=== PATIENT | male | born 1985 | race Caucasian/White ===

== ENCOUNTER 2021-04-08 13:29 | Outpatient (CLI) | payer OTHER, SELFPAY ==
[2021-04-08 14:06] LABS: SARS-CoV-2 Ag Positive (Negative)
== END 2021-04-08 13:30 | disposition home or self-care (01) ==
LOC: CHSLAB 13:32
PROVIDERS: PCP Family Medicine; Visit Provider Family Medicine
DX: U07.1 COVID-19 (principal)
CPT/HCPCS: 87426; C9803

== ENCOUNTER 2021-11-05 09:21 | Outpatient (CLI) | payer OTHER, SELFPAY ==
--- NOTE | ~2021-11-05 | XR_ITS ---
XR ankle RT min 3V 11/05/2021 09:41 INDICATION: Right ankle pain and swelling PROCEDURE: 4 views right ankle COMPARISON: 02/09/2014 FINDINGS: Fracture, dislocation or subluxation is not identified. Ankle mortise intact. There are arnulfo gical changes of the distal tibia and fibula. Small degenerative calcaneal enthesophytes. The soft ti ssues appear within normal limits. No foreign bodies are identified. There are corticated ossific de nsities distal to the fibula which may represent accessory ossicles or sequela of remote trauma. IMPRESSION: 1: NO ACUTE BONE OR JOINT ABNORMALITY IDENTIFIED. Reviewed, dictated and finalized at location A.
== END 2021-11-05 09:22 | disposition home or self-care (01) ==
LOC: CHSIMG 09:24
PROVIDERS: PCP Family Medicine; Visit Provider Family Medicine
DX: M25.571 Pain in right ankle and joints of right foot (principal)
CPT/HCPCS: 73610

== ENCOUNTER 2023-01-07 07:09 | Outpatient (CLI) | payer BC, SELFPAY ==
--- NOTE | ~2023-01-07 | US_ITS ---
US right upper quadrant INDICATION: Right upper quadrant pain PROCEDURE: Realtime right upper abdominal ultrasound. COMPARISON: Ultrasound dated 01/19/2019 FINDINGS: The pancreas is normal without focal mass or pancreatic ductal dilation. Over echotexture is diffusely increased, consistent with fatty infiltration. There is normal directional flow in the portal vein. The gallbladder is normal without stones, gallbladder wall thickening or pericholecystic fluid. Comm on bile duct measures 3 mm. No sonographic Vick's sign. IMPRESSION: 1: Fatty infiltration of the liver. Reviewed, dictated and finalized at location B.
== END 2023-01-07 07:10 | disposition home or self-care (01) ==
LOC: CHSIMG 07:12
PROVIDERS: PCP Family Medicine; Visit Provider Family Medicine
DX: R10.13 Epigastric pain (principal); K76.0 Fatty (change of) liver, not elsewhere classified
CPT/HCPCS: 76705

== ENCOUNTER 2023-07-31 07:40 | Outpatient (CLI) | payer BC, SELFPAY ==
--- NOTE | ~2023-07-31 | NM_ITS ---
EXAMINATION: NM hepatobiliary w pharm DATE: 07/31/2023 10:44 CDT INDICATION: Epigastric pain COMPARISON: None. TECHNIQUE: 6.3 mCi Tc-99m mebrofenin (Choletec) was administered intravenously. Scintigraphic images of the abdomen were obtained for one hour. At the 1 hour time point, 2.9 mcg sincalide (Kinevac) was administered by slow intravenous infusion, and imaging was continued for 30 minutes. Gallbladder eje ction fraction was calculated by the technologist.] FINDINGS: There is normal clearance of radiotracer from the blood pool. There is homogeneous tracer u ptake by the liver. Activity progresses to the gallbladder and bowel. Gallbladder ejection fraction is 31%% (normal 10-90%, but most patient with gallbladder dysfunction have GBEF < 35%).] IMPRESSION: 1. Mildly decreased gallbladder ejection fraction measuring 31%. Reviewed, dictated and finalized at location B.
== END 2023-07-31 07:41 | disposition home or self-care (01) ==
LOC: CHSIMG 07:41
PROVIDERS: PCP Family Medicine; Visit Provider Family Medicine
DX: R10.13 Epigastric pain (principal)
CPT/HCPCS: 78227; A9537; J2805

== ENCOUNTER 2023-09-11 00:51 | Day surgery (SDC) | payer BC, SELFPAY ==
[2023-09-08 14:20] VITALS: BMI 39.4
[2023-09-11 12:47] VITALS: BP 146/100; PULSE 73; RESP 18; TEMP 36.4; O2SAT 98
[2023-09-11] MEDS: LACTATED RINGERS 1,000 ML 150 ML IV CONT (13:01)
--- NOTE | 2023-09-11 13:32 | P.PNAN_ITS ---
Anes - Initial Pre Proc Eval Procedure: Operation Date: 09/11/23 15:00 Proposed Procedures p Esophagogastroduodenoscopy - Gatito Matute MD Date/Time: 09/11/23 13:32 Surgeon: Gatito Matute MD Pre Op Diagnosis: RUQ pain, GERD Patient Data Age: 38 Gender: M Height: 1.83 m Weight: 130 kg Last Vital Signs Temp 97.5 F L 09/11/23 12:47 Pulse 73 09/11/23 12:47 Resp 18 09/11/23 12:47 BP 146/100 H 09/11/23 12:47 Pulse Ox 98 09/11/23 12:47 O2 Del Method Room Air 09/11/23 12:47 Allergies Allergy/AdvReac Type Severity Reaction Status Date / Time No Known Allergies Allergy Verified 09/11/23 12:46 Home Medications Medication Instructions Recorded Confirmed Type No Home Medications 09/08/23 09/08/23 History Patient hx anesthesia problems: none Family hx anesthesia problems: none Results Review: All pre-operative results and documents have been reviewed as part of the pre-operative evaluation. REPLACED BY [facility] Surgical History Surgical History History of appendectomy Family History Family History Father Coronary artery disease Dementia Mother H/O valvular heart disease Social History Social History Smoking status: Current every day smoker Tobacco type: cigarettes Alcohol intake: never Substance use: never Substance use type: does not use Living arrangements: with family Spiritual care concerns: No Anes - Eval Final PreProcedure Day of Procedure 09/11/23 13:32 Patient weight: obese Heart: regular rate and rhythm Lungs: clear to auscultation Airway: Mallampati scale class III Neurological: alert and oriented Last oral intake: >/= 8 hours ASA classification: III Emergent: no Anesthetic plan: proceed Anesthesia type and monitoring: general GIVS and standard monitoring Results Review: All pre-operative results and documents have been reviewed as part of the pre- operative evaluation. Informed Consent: The patient's anesthetic plan and its attendant risks and benefits were discussed with the patient/family/POA. Questions were solicited and answers provided to the satisfaction of the patient/family/POA.
--- NOTE | 2023-09-11 13:47 | WPDHPUPDATE1 ---
History and Physical Update Update Date/Time: 09/11/23 13:47 History and Physical has been reviewed, including an updated exam of the patient. There are NO changes in the patient's condition. Risks, benefits, and alternatives have been discussed and questions answered. Patient agrees to proceed with procedure.
[2023-09-11 13:58] VITALS: BP 122/81; PULSE 91; RESP 20; O2SAT 98
[2023-09-11 14:08] VITALS: BP 139/87; PULSE 79; RESP 25; O2SAT 94
[2023-09-11 14:18] VITALS: BP 136/79; PULSE 80; RESP 22; O2SAT 94
== END 2023-09-11 14:22 | disposition home or self-care (01) ==
PROVIDERS: PCP Family Medicine; Referring Provider Nurse Practitioner Family; Visit Provider Internal Medicine Gastroenterology
PROC: 0DJ08ZZ Inspection of Upper Intestinal Tract, Via Natural or Artificial Opening Endoscopic (ICD-10-PCS; CPT 43235; principal; 2023-09-11 15:00)
DX: K29.80 Duodenitis without bleeding (principal); R10.13 Epigastric pain; R10.11 Right upper quadrant pain; K21.9 Gastro-esophageal reflux disease without esophagitis; R94.8 Abnormal results of function studies of other organs and systems; R93.2 Abnormal findings on diagnostic imaging of liver and biliary tract; B96.81 Helicobacter pylori [H. pylori] as the cause of diseases classified elsewhere; F17.210 Nicotine dependence, cigarettes, uncomplicated; K76.0 Fatty (change of) liver, not elsewhere classified; Z80.0 Family history of malignant neoplasm of digestive organs
CPT/HCPCS: 43239; 88305; 88342; J7120

== ENCOUNTER 2023-11-17 07:33 | Outpatient (CLI) | payer BC, SELFPAY ==
[2023-11-17 08:26] LABS: Alanine Aminotransferase 42 U/L (16-63); Albumin Level 3.8 g/dL (3.4-5.0); Alkaline Phosphatase 120 U/L (46-116); Amylase 48 U/L (25-115); Aspartate Amino Transferase 19 U/L (15-37); Bilirubin Direct 0.1 mg/dL (0-0.2); Bilirubin,Total 0.4 mg/dL (0.00-1.00); Lipase 33 U/L (16-77); Total Protein 6.9 g/dL (6.4-8.2)
== END 2023-11-17 07:34 | disposition home or self-care (01) ==
LOC: CHSLAB 07:35
PROVIDERS: PCP Family Medicine; Visit Provider Surgery
DX: Z01.818 Encounter for other preprocedural examination (principal); K82.8 Other specified diseases of gallbladder
CPT/HCPCS: 36415; 80076; 82150; 83690

== ENCOUNTER 2023-11-20 00:23 | Day surgery (SDC) | payer BC, SELFPAY ==
[2023-11-16 09:24] VITALS: BMI 39.3
--- NOTE | 2023-11-16 09:40 | SUR.PREOP ---
Report to the Outpatient Waiting Room, entrance under the green pavilion located off [facility], at time 1100 on date 11/20/23. Planned Procedure Time: 1300. Time changes happen often and if your time is changed the preop area will call you the afternoon before. - You and your visitor will be asked to self-screen and do not enter if you have any COVID symptoms. - A mask is optional within the hospital at this time. Patients may have clear liquids (water, carbonated beverages, clear teas, apple juice) until 3 hours prior to surgery with a maximum of 20 ounces. - No food from midnight until time of surgery - Infants may have breast milk until 4 hours before surgery, infant formula 6 hours prior to surgery. - Children will be allowed to drink immediately following surgery. If applicable, please bring a bottle or sippy cup to assist with drinking. Juice, water, soda, and popsicles are readily available. For infants on formula, please bring formula the day of surgery. Pacifiers are allowed. Take the following medications with a SIP of water the morning of surgery: N/A DO NOT STOP ANY OF YOUR OTHER PRESCRIPTION MEDICATIONS PRIOR TO SURGERY ?EXCEPT THE FOLLOWING Medications to discontinue per physician N/A Date to take last dose N/A Please no make-up, nail [place], hairspray, perfume, deodorant, or body powder the day of surgery. No jewelry (including any body piercings) or valuables the day of surgery, leave them at home. Please take a shower or bath the night before, or the morning of, surgery with an antibacterial soap. Wear comfortable, loose fitting clothing. Children are encouraged to wear pajamas. - Jewelry must be removed prior to entering the operating room. Rings and piercings that are not removed may be cut off. - The hospital will not accept responsibility for valuables. - Please leave all valuables, including medications, at home the day of surgery. If you are going home after surgery, a licensed river driver must drive you home. - NO public transportation without another adult if you receive anesthesia. - We recommend that an adult stay with you for 24 hours following discharge. - We also recommend that you do not drive, make important decision, drink alcoholic beverages, or take any drugs that were not prescribed by your health care provider for at least 24 hours after your discharge time. For Pediatric surgeries, we recommend two adults accompany the child home. Follow any additional instructions given to you from your surgeon. If you or anyone in your household have experienced Covid symptoms in the past week, please notify your surgeon or the nurse liaison at the phone number below for possible testing. Telephone instructions given to RIAN ULRICH and asked if any additional questions and then verbalized understanding. Patient advised to call surgeon office or pre surgery nurse liaison [phone] if any additional questions.
[2023-11-20] VITALS (11 sets, daily range): BP systolic 100–162; BP diastolic 56–98; PULSE 67–91; RESP 12–16; TEMP 36.3–36.4; O2SAT 91–100
--- NOTE | 2023-11-20 11:58 | WPDHPUPDATE1 ---
History and Physical Update Update Date/Time: 11/20/23 11:58 History and Physical has been reviewed, including an updated exam of the patient. There are NO changes in the patient's condition. Risks, benefits, and alternatives have been discussed and questions answered. Patient agrees to proceed with procedure.
[2023-11-20] MEDS: ACETAMINOPHEN 500 MG TABLET 1000 MG PO (12:03)
--- NOTE | 2023-11-20 12:06 | WPDANESEPPF ---
Anes - Initial Pre Proc Eval Procedure: Operation Date: 11/20/23 13:00 Proposed Procedures p Laparoscopic Cholecystectomy, Possible Open - Boom Montes DO Date/Time: 11/20/23 12:06 Surgeon: Boom Montes DO Pre Op Diagnosis: biliary dyskinesia Patient Data Age: 38 Gender: M Height: 1.83 m Weight: 131 kg Last Vital Signs Temp 36.3 C L 11/20/23 11:00 Pulse 78 11/20/23 11:00 Resp 16 11/20/23 11:00 BP 141/95 H 11/20/23 11:00 Pulse Ox 98 11/20/23 11:00 O2 Del Method Room Air 11/20/23 11:00 Allergies Allergy/AdvReac Type Severity Reaction Status Date / Time No Known Allergies Allergy Verified 11/20/23 11:48 Home Medications Medication Instructions Recorded Confirmed Type No Home Medications 11/16/23 11/20/23 History Patient hx anesthesia problems: none Family hx anesthesia problems: none Results Review: All pre-operative results and documents have been reviewed as part of the pre-operative evaluation. [facility] Past Medical History Medical History (Updated 11/20/23 @ 12:11 by Santana Rodarte DO) GERD (gastroesophageal reflux disease) Helicobacter positive gastritis Hepatic steatosis Surgical History Surgical History History of appendectomy Family History Family History Father Coronary artery disease Dementia Mother H/O valvular heart disease Social History Social History (Updated 11/20/23 @ 12:15 by Santana Rodarte DO) Years smoked: 10 Smoking status: Current every day smoker Tobacco type: cigarettes Additional smoking assessment comments: 15 years Alcohol intake: never Substance use: never Substance use type: does not use Living arrangements: with friend(s) Spiritual care concerns: No Anes - Eval Final PreProcedure Day of Procedure 11/20/23 12:06 Patient weight: obese Heart: regular rate and rhythm Lungs: clear to auscultation Airway: Mallampati scale class II and special considerations poor dentition Neurological: alert and oriented Last oral intake: >/= 8 hours ASA classification: III Emergent: no Anesthetic plan: proceed Anesthesia type and monitoring: general ETT and standard monitoring Results Review: All pre-operative results and documents have been reviewed as part of the pre-operative evaluation. Informed Consent: The patient's anesthetic plan and its attendant risks and benefits were discussed with the patient/family/POA. Questions were solicited and answers provided to the satisfaction of the patient/family/POA.
[2023-11-20] MEDS: KETOROLAC 15 MG/ML VIAL (*BKC) IV PUSH (12:16)
[2023-11-20] MEDS: ceFAZolin 3 GM/D5W 100 ML 100 ML IVPB (12:40)
[2023-11-20] MEDS: BUPIVACAINE/EPINEPHRINE 0.5% 10 ML VIAL 30 ML INFILTRATE (12:40)
--- NOTE | 2023-11-20 13:38 | W.PM.PROC2 ---
Procedure Note - Detailed Date of Procedure 11/20/23 Pre-op Diagnosis biliary dyskinesia Post-op Diagnosis Same Procedure Performed Laparoscopic Cholecystectomy Surgeon Boom Montes, DO Anesthesia General and Local (0.5% bupivacaine) Indications This is a 38-year-old man who presented with intermittent epigastric and right upper quadrant pain after eating fried or fatty foods. This is been going on for at least several months. He had a previous ultrasound which only showed fatty infiltration of the liver. He then had a HIDA scan which showed a gallbladder ejection fraction of 31%. Discussions were made with the patient about treatment options. Decision was made to proceed with laparoscopic cholecystectomy, possible open. Findings Laparoscopic cholecystectomy was performed. The patient's gallbladder had a few pericholecystic adhesions. There was a significant amount of pericholecystic adipose tissue as well. The cystic duct appeared normal in size. No other significant abnormalities were noted with the gallbladder itself. The gallbladder was removed and sent to the lab for pathology. Description of Procedure Procedure as well as risks, benefits, and alternatives were discussed with patient. Written consent was obtained and placed in chart prior to procedure. The patient was brought back to surgical suite. Patient was placed in supine position on operating table. Time-out was done to confirm patient and procedure. Patient was then intubated by the anesthesia department. Abdomen was prepped and draped in sterile fashion using chlorhexidine prep. 0.5% bupivacaine with epinephrine was infiltrated at each site of incision. A 5 millimeter incision was made near the umbilicus, and a 5 millimeter Optiview trocar was advanced through the abdominal layers under direct visualization. Once inside the abdominal cavity, carbon dioxide was insufflated to create a pneumoperitoneum. The camera was inserted and the abdomen was inspected. No immediate abnormalities were identified. The patient was placed in reverse Trendelenburg position and rotated slightly to the left. An 11 millimeter incision was made in the subxiphoid region, and an 11 millimeter trocar was inserted under direct visualization. Two 5 millimeter incisions were made in the right upper quadrant, and two 5 millimeter trocars were inserted under direct visualization. The gallbladder was identified and grasped at the fundus and retracted superiorly. It was then grasped at the infundibulum retracted laterally. Careful dissection around the neck of the gallbladder was performed using blunt dissection with a [place] grasper and hook electrocautery. The cystic duct was identified, and a window was created behind it. The cystic artery was also identified and a window was created behind it. The critical view of safety was identified, visualizing the cystic duct running directly into the neck of the gallbladder, and the cystic artery running directly into the wall of the gallbladder. A 5 millimeter clip air conditioning mechanic industrial was then used to place 2 clips proximally and 1 clip distally on both the cystic duct and cystic artery. They were then both transected using endoscopic scissors. Once safely away from the janessa hepatitis, the gallbladder was dissected free from the liver bed using hook electrocautery. Hemostasis was achieved along the way. The gallbladder was removed completely and then removed through the subxiphoid port. The liver bed was then inspected. Hemostasis appeared adequate, and our clips appeared secure. The area was gently irrigated with sterile saline. No other abnormalities were seen. The patient was flattened out in bed, and 1 final inspection was made around the abdominal cavity. The subxiphoid port was removed, and a Mikel Greg cone was used to approximate the fascia with an 0-Vicryl simple interrupted suture. The remaining ports were then removed under direct visualization, the
[2023-11-20] MEDS: LACTATED RINGERS 1,000 ML 30 ML IV CONT ×2 (14:07→14:43)
[2023-11-20] MEDS: ONDANSETRON INJ 4 MG/2 ML VIAL IV PUSH (14:45)
[2023-11-20] MEDS: SCOPOLAMINE 1 MG PATCH 1 PATCH TRANSDERM (15:07)
[2023-11-20] MEDS: diphenhydrAMINE HCl INJ 50 MG/ML VIAL 25 MG IV PUSH (15:08)
== END 2023-11-20 16:47 | disposition home or self-care (01) ==
PROVIDERS: PCP Family Medicine; Visit Provider Surgery
PROC: 0FT44ZZ Resection of Gallbladder, Percutaneous Endoscopic Approach (ICD-10-PCS; CPT 47562; principal; 2023-11-20 13:00)
DX: K82.8 Other specified diseases of gallbladder (principal); K21.9 Gastro-esophageal reflux disease without esophagitis; F17.210 Nicotine dependence, cigarettes, uncomplicated
CPT/HCPCS: 47562; 88304; A9270; J0690; J1100; J1170; J1200; J1885; J2250; J2405; J2704; J3010; J7030; J7120

== ENCOUNTER 2023-12-14 14:19 | Emergency (ER) | payer BC, SELFPAY ==
[2023-12-14 14:19] VITALS: BP 153/95; PULSE 110; RESP 18; TEMP 36.3; O2SAT 96
--- NOTE | 2023-12-14 14:33 | ED.EYEPROB ---
HPI - Eye Problem General Chief complaint: Eye Problems Stated complaint: foreign body left eye Time Seen by Provider: 12/14/23 14:29 History of Present Illness HPI Narrative: Pt was grinding metal earlier and later noticed a FB sensation in his left eye and noticed black spot in his eye. Vision is intact. Related Data Home Medications Medication Instructions Recorded Confirmed No Home Medications 12/04/23 12/14/23 Allergies Allergy/AdvReac Type Severity Reaction Status Date / Time No Known Allergies Allergy Verified 12/14/23 14:28 Review of Systems Review of Systems: All systems reviewed & are unremarkable except as noted in HPI and below PMFSH Past Medical History Medical History (Updated 12/14/23 @ 14:37 by Saúl Pagan III, DO) GERD (gastroesophageal reflux disease) Helicobacter positive gastritis Hepatic steatosis Surgical History Surgical History (Updated 12/04/23 @ 08:54 by Dayanara Liriano) History of appendectomy History of laparoscopic cholecystectomy 11/20/2023 - laparoscopic cholecystectomy Family History Family History Father Coronary artery disease Dementia Mother H/O valvular heart disease Social History Social History Years smoked: 10 Smoking status: Current every day smoker Tobacco type: cigarettes Additional smoking assessment comments: 15 years Alcohol intake: never Substance use: never Substance use type: does not use Living arrangements: with friend(s) Spiritual care concerns: No Exam Const: General: healthy appearing and no acute distress Nutritional Appearance: well nourished Orientation/consciousness: patient oriented x3 Limitations: no limitations HENMT: Head: normal to inspection Eyes: Other: FB noted at 9 0clock poition left cornea. sclera injected. Neck: Neck: normal visual inspection Course Vital Signs Vital signs: Vital Signs Temperature 97.3 F L 12/14/23 14:19 Pulse Rate 110 H 12/14/23 14:19 Respiratory Rate 18 12/14/23 14:19 Blood Pressure 153/95 H 12/14/23 14:19 Pulse Oximetry 96 12/14/23 14:19 Oxygen Delivery Room Air 12/14/23 14:19 Temperature 97.3 F L 12/14/23 14:19 Pulse Rate 110 H 12/14/23 14:19 Respiratory Rate 18 12/14/23 14:19 Blood Pressure 153/95 H 12/14/23 14:19 Pulse Oximetry 96 12/14/23 14:19 Oxygen Delivery Room Air 12/14/23 14:19 MDM - Eye Problem MDM Narrative Medical decision making narrative: Pt has apparent metalic FB seen but no slit lamp or proper equipment here. Contqacted Dr Recinos at [facility] and she will see pt right now. Discharge Plan Discharge Clinical Impression: Acute foreign body of left cornea Patient Disposition: Home, Self-Care Condition: Stable Instructions: Antibiotic Form, Eye Foreign Body (ED) Additional Instructions: to [facility] now. Prescriptions: No Action No Home Medications Follow-up/Referrals: Krish Sargent MD [Primary Care Provider] -
== END 2023-12-14 14:42 | disposition home or self-care (01) ==
LOC: CHSED 14:40
PROVIDERS: Emergency Provider Emergency Medicine; PCP Family Medicine
DX: T15.02XA Foreign body in cornea, left eye, initial encounter (principal); F17.210 Nicotine dependence, cigarettes, uncomplicated; W44.E0XA Non-magnetic metal object unspecified, entering into or through a natural orifice, initial encounter
CPT/HCPCS: 99282

== ENCOUNTER 2024-01-16 08:44 | Outpatient (CLI) | payer BC, SELFPAY ==
[2024-01-18 16:45] LABS: H pylori Ag Stool RESULT: Not Detected
== END 2024-01-16 08:45 | disposition home or self-care (01) ==
LOC: CHSLAB 08:46
PROVIDERS: PCP Family Medicine; Visit Provider Internal Medicine Gastroenterology
DX: K29.70 Gastritis, unspecified, without bleeding (principal); B96.81 Helicobacter pylori [H. pylori] as the cause of diseases classified elsewhere
CPT/HCPCS: 87338

== ENCOUNTER 2025-01-03 07:29 | Outpatient (CLI) | payer BC, SELFPAY ==
[2025-01-03 07:43] LABS: Hematocrit 48.9 % (40.0-54.0); Hemoglobin 16.7 g/dL (14.0-18.0); Immature Granulocyte Percent A 0.7 % (0.0-0.0); Lymphocytes Absolute Auto 2.66 K/mm3 (1.10-4.50); Mean Corpuscular HGB Conc 34.2 g/dL (32-36); Mean Corpuscular Hemoglobin 30.0 pg (27.0-31.0); Mean Corpuscular Volume 87.8 fL (78.0-102.0); Nucleated Red Blood Cells Absolute Auto 0.00 K/mm3 (0.00-0.00); Nucleated Red Blood Cells Perc 0.0 % (0-0.0); Platelet Count Result 302 K/mm3 (150-420); Red Blood Count 5.57 M/mm3 (4.70-6.10); White Blood Count 9.6 K/mm3 (4.8-10.8)
[2025-01-03 07:58] LABS: Add Urine Microscopic? NO; Appearance Urine Clear (Clear); Glucose Urine UA Negative (Negative); Leukocyte Esterase Ur Negative (Negative); Nitrate Urine Negative (Negative); Specific Grav Ur <= 1.005 (1.010-1.020)
[2025-01-03 08:24] LABS: Alanine Aminotransferase 35 U/L (6-50); Albumin Level 4.5 g/dL (3.5-5.1); Alkaline Phosphatase 95 U/L (38-126); Anion Gap 10 mmol/L (4-12); Aspartate Amino Transferase 27 U/L (17-59); Bilirubin,Total 0.6 mg/dL (0.2-1.3); Blood Urea Nitrogen 13 mg/dL (9-20); Calcium 9.8 mg/dL (8.4-10.2); Carbon Dioxide 27 mmol/L (22-30); Chloride 107 mmol/L (98-107); Cholesterol 191 mg/dL (0-200); Estimated Glomerular Filt Rate > 60; Glucose 100 mg/dL (65-110); HDL Direct 38 mg/dL; Osmolality Calculated 298 mOsm/kg (285-295); Potassium 5.2 mmol/L (3.4-5.0); Sodium 144 mmol/L (137-145); Total Protein 8.0 g/dL (6.3-8.2); Triglycerides 237 mg/dL (<150)
[2025-01-03 08:53] LABS: Thyroid Stimulating Hormone 2.090 uIU/mL (0.465-4.680)
== END 2025-01-03 07:30 | disposition home or self-care (01) ==
PROVIDERS: PCP Family Medicine; Visit Provider Family Medicine
DX: R53.83 Other fatigue (principal); Z13.220 Encounter for screening for lipoid disorders
CPT/HCPCS: 36415; 80053; 80061; 81003; 84443; 85025